=== PATIENT | female | born 1965 | race Hispanic/Latino ===

== ENCOUNTER 2023-01-17 11:31 | Outpatient (CLI) | payer BC | END 2023-01-17 11:32 | disposition home or self-care (01) | LOC: SCSMRI 11:31 | PROVIDERS: ATTEND Radiology Radiation Oncology | DX: D44.7 Neoplasm of uncertain behavior of aortic body and other paraganglia (principal); D44.6 Neoplasm of uncertain behavior of carotid body; H74.92 Unspecified disorder of left middle ear and mastoid | CPT/HCPCS: 70543; 70553 ==